=== PATIENT | female | born 1960 | race Caucasian/White ===

== ENCOUNTER 2022-03-06 12:15 | Emergency (ER) | payer BC, SELFPAY ==
--- NOTE | 2022-03-06 12:54 | PC.NURSE ---
[id number] went to waiting room to call pt to triage, pt was not in lobby. registration unaware she had left.
== END 2022-03-06 12:42 | disposition left against medical advice (07) ==
PROVIDERS: Emergency Provider Nurse Practitioner; PCP Internal Medicine
DX: Z53.21 Procedure and treatment not carried out due to patient leaving prior to being seen by health care provider (principal)
CPT/HCPCS: 99199